=== PATIENT | male | born 1945 | race African-American/Black ===

== ENCOUNTER 2017-05-24 19:44 | Emergency (ER) | payer MEDICARE, OTHER, SELFPAY ==
[2017-05-24] MEDS ORDERED: Adacel (T-DAP) 0.5 ML VIAL ONE (20:24)
[2017-05-24] MEDS ORDERED: Ibuprofen 200 MG TAB ONE (20:24)
== END 2017-05-24 20:55 | disposition home or self-care (01) ==
LOC: NAV ERS 19:44
DX: S39.012A Strain of muscle, fascia and tendon of lower back, initial encounter (principal); S16.1XXA Strain of muscle, fascia and tendon at neck level, initial encounter; S00.83XA Contusion of other part of head, initial encounter; S50.811A Abrasion of right forearm, initial encounter; I10 Essential (primary) hypertension; V43.52XA Car driver injured in collision with other type car in traffic accident, initial encounter; W22.11XA Striking against or struck by driver side automobile airbag, initial encounter; Y92.410 Unspecified street and highway as the place of occurrence of the external cause
CPT/HCPCS: 90471; 90715